=== PATIENT | female | born 1965 | race Caucasian/White ===

== ENCOUNTER → 2024-08-04 12:23 | Outpatient (REF) | payer OTHER, MEDICARE, SELFPAY | LOC: WOUND 12:23 | PROVIDERS: ATTENDING PHYSICIAN Surgery | DX: I87.311 Chronic venous hypertension (idiopathic) with ulcer of right lower extremity (principal); L97.212 Non-pressure chronic ulcer of right calf with fat layer exposed; I87.2 Venous insufficiency (chronic) (peripheral); I73.9 Peripheral vascular disease, unspecified; I89.0 Lymphedema, not elsewhere classified; E66.01 Morbid (severe) obesity due to excess calories | CPT/HCPCS: 97597; 99204 ==

== ENCOUNTER → 2024-08-11 13:46 | Outpatient (REF) | payer OTHER, MEDICARE, SELFPAY | LOC: WOUND 13:46 | PROVIDERS: ATTENDING PHYSICIAN Surgery | DX: I87.311 Chronic venous hypertension (idiopathic) with ulcer of right lower extremity (principal); L97.212 Non-pressure chronic ulcer of right calf with fat layer exposed; I87.2 Venous insufficiency (chronic) (peripheral); I73.9 Peripheral vascular disease, unspecified; I89.0 Lymphedema, not elsewhere classified; E66.01 Morbid (severe) obesity due to excess calories | CPT/HCPCS: 29581; 99213 ==

== ENCOUNTER → 2024-08-19 13:37 | Outpatient (REF) | payer OTHER, MEDICARE, SELFPAY | LOC: WOUND 13:37 | PROVIDERS: ATTENDING PHYSICIAN Surgery | DX: I87.311 Chronic venous hypertension (idiopathic) with ulcer of right lower extremity (principal); L97.212 Non-pressure chronic ulcer of right calf with fat layer exposed; I87.2 Venous insufficiency (chronic) (peripheral); I73.9 Peripheral vascular disease, unspecified; I89.0 Lymphedema, not elsewhere classified; E66.01 Morbid (severe) obesity due to excess calories | CPT/HCPCS: 29581; 99213 ==

== ENCOUNTER → 2024-08-26 13:57 | Outpatient (REF) | payer OTHER, MEDICARE, SELFPAY | LOC: WOUND 13:57 | PROVIDERS: ATTENDING PHYSICIAN Surgery | DX: I87.311 Chronic venous hypertension (idiopathic) with ulcer of right lower extremity (principal); L97.212 Non-pressure chronic ulcer of right calf with fat layer exposed; I87.2 Venous insufficiency (chronic) (peripheral); I73.9 Peripheral vascular disease, unspecified; I89.0 Lymphedema, not elsewhere classified; E66.01 Morbid (severe) obesity due to excess calories | CPT/HCPCS: 29581; 99213 ==

== ENCOUNTER → 2024-09-02 08:50 | Outpatient (REF) | payer OTHER, MEDICARE, SELFPAY | LOC: WOUND 08:50 | PROVIDERS: ATTENDING PHYSICIAN Surgery | DX: I87.311 Chronic venous hypertension (idiopathic) with ulcer of right lower extremity (principal); L97.212 Non-pressure chronic ulcer of right calf with fat layer exposed; L03.115 Cellulitis of right lower limb; I87.2 Venous insufficiency (chronic) (peripheral); I73.9 Peripheral vascular disease, unspecified; I89.0 Lymphedema, not elsewhere classified; E66.01 Morbid (severe) obesity due to excess calories | CPT/HCPCS: 29581; 99213 ==

== ENCOUNTER 2024-09-06 16:28 | Emergency (ER) | payer OTHER, MEDICARE, SELFPAY ==
[2024-09-06 16:31] VITALS: BP 181/114
--- NOTE | 2024-09-06 18:11 | ED.GENMED ---
History of Present Illness
General
Chief Complaint: Urinary Symptoms
Source: patient
Exam Limitations: none
Time Seen by Provider: 09/06/24 17:34
Nursing documentation reviewed up to this point in time: agreed with
History of Present Illness
History of Present Illness:
Patient to ED with complaint of vaginal spotting, blood in urine, blood in stool. States she noted light spotting over the past few weeks. Yesterday she noted blood in her urine and then today reports blood in stool. No prior history of same.
Denies any abdominal pain, n/v/d. Brought self to ED for eval. Also reports a wouond to right breast. Noticed this yesterday.
Past History
Past History
ED Past Medical History: Other (morbid obesity, anemia, Covid+ 06/03/18)
Social History
Tobacco: Non-smoker
Personal:
Living: with family
Employment: Employed
Review of Systems
Review of Systems
Allergies reviewed?: Yes
All Other Systems: ROS reviewed and negative except as documented in HPI and ROS
Constitutional: Reports no symptoms
EENT: Reports no symptoms
Respiratory: Reports no symptoms
Cardiac: Reports no symptoms
ABD/GI: Reports bloody stools
: Reports bleeding (reports vaginal bleeding, blood in urine, blood in stool)
Musculoskeletal: Reports no symptoms
Skin: Reports other (chronic wounds BLE - follow at wound center. Currently taking doxycycline. Now notes now wouond to right breast)
Neurological: Reports no symptoms
Psychiatric: Reports no symptoms
Phy Exam
General Physical Exam
General Presentation: well appearing and no apparent distress
General age: appears stated age
General Skin: warm and dry
General Habitus: normal
General Mental: alert
Cardiovascular Exam
Cardiovascular Exam: regular rate/rhythm and no edema
Pulmonary Exam
Pulmonary Exam: lungs clear and no respiratory distress
Gastrointestinal Exam
Gastrointestinal Exam: normal bowel sounds, non tender, soft, no organomegaly, non distended and no cva tenderness
Rectal Exam: normal external exam and soft stool
Stool: brown
Guaiac Status: negative
Genitourinary Exam Female
Exam Female: vaginal bleeding (light bleeding, no clots)
Vaginal Exam: other (Morbidly obese. Difficult speculum exam due to her size. Poor visibility of cervix)
Vaginal Bleeding: minimal
Musculoskeletal Exam
Musculoskeletal Exam: full ROM and neuro vasc intact
Skin Exam
Skin Exam: normal color, warm/dry and other (Chronic wounds BLE - under care of wound center. CUrrently taking doxycyline. Now with 1cm superficial ulceration to right breast at 7oclock. No erythema or swelling. WOund cuture obtained)
Psychiatric Exam
Psychiatric Exam: normal mood/affect
Course
Orders/Labs/Results
Orders:
Orders
09/06/24 18:11
Complete Blood Count/With Diff Urgent
Comprehensive Metabolic Panel Urgent
Pelvis (Non Obstetric) US [US Pelvis Only (non-obstetric)] Urgent
Comment:
Reason For Exam: bleeding
09/06/24 18:38
Wound Culture [Wound/Abscess/Other Culture] Urgent
BRANDON Source: Breast
Specimen Description: Right
Date Specimen was Collected: 09/06/24
Time Specimen was Collected: 18:15
09/06/24 20:16
Urinalysis Reflex To Culture Urgent
Date Specimen was Collected: 09/06/24
Time Specimen was Collected: 20:15
Urine Microscopic Reflex Cult Urgent
Urine Culture Urgent
BRANDON Source: U
Specimen Description:
Date Specimen was Collected: 09/06/24
Time Specimen was Collected: 20:15
Abnormal Lab Results
09/06/24 09/06/24
18:11 20:16
WBC 16.5 H 10^3/uL
(4.8-10.8)
Hgb 10.1 L g/dL
(12.0-16.0)
Hct 33.6 L %
(37.0-47.0)
MCV 77.2 L fL
(81.0-99.0)
MCH 23.2 L pg
(27.0-31.0)
MCHC 30.1 L g/dL
(33.0-37.0)
RDW 16.4 H %
(11.5-14.5)
Plt Count 430 H 10^3/uL
(130-400)
Abs Immat Gran (auto) 0.2 H 10^3/uL
(0-0.05)
Absolute Neuts (auto) 13.4 H 10^3/uL
(1.4-6.5)
Absolute Monos (auto) 0.9 H 10^3/uL
(0.1-0.6)
Immature Gran % 1.0 H %
(0-0.5)
Neutrophils % 81.1 H %
(42.2-75.2)
Lymphocytes % 10.6 L %
(20.5-51.1)
BUN 21 H mg/dl
(7-17)
Glucose 136 H mg/dl
(70-99)
Ur Occult Blood Reflex 4+ A
(Negative)
Leukocyte Esterase Rfl 1+ A
(Negative)
Urine RBC 26-30 A /HPF
(0-2)
Urine Bacteria (Reflex) Moderate A
(Negative)
09/06/24 18:11
09/06/24 18:11
Vital Signs
Initial and Last Documented VS:
Initial Vital Signs
Temp Pulse Resp BP Pulse Ox
98.9 F 120 20 181/114 96
09/06/24 16:31 09/06/24 16:31 09/06/24 16:31 09/06/24 16:31 09/06/24 16:31
Last Documented Vital Signs
Temp Pulse Resp BP Pulse Ox
98.9 F 80 20 181/114 96
09/06/24 16:31 09/06/24 21:23 09/06/24 16:31 09/06/24 16:31 09/06/24 23:22
*Radiology
Radiology exam reviewed: radiology read reviewed
*Pulse Oximetry
SaO2: 96
Oxygen Mode of Delivery: Room air
Patient hypoxic: no
*Critical Care Note
Total Time (30-74mins, 75-104mins- exclusive of procedures): Not Applicable
Update Note
Update Note:
Patient to ED with complant of blood in stool and urine. Reports vaginal spotting over the past few weeks. UA neg for UTI, stool heme neg. Vaginal exam limited due to morbid obesity. Small amt of blood noted in vagina, correlates with blood
patient noted in toilet and on tissue paper. Unable to visualize cervix. US completed, notes thickened endometrium. Discussed findings with her, need for gynecology teacher follow up, need for uterine biopsy. Will discharge home. SHe was given the referral for
gynecology teacher and she will call sunday to schedule her appointment. Given instructions on s/s to return to ED and she is agreeable to plan
ED Attending Note
-
Portions of this chart may have been created with voice recognition software.� Occasional wrong word or��sound alike� substitutions may have occurred due to the inherent limitations of voice recognition software.
Discharge Plan
Departure
Patient Disposition: Home (Routine Discharge)
Date of Disposition: 09/06/24
Time of Disposition: 20:52
Patient with high blood pressure during this ER visit?: No
Condition: Good
Covid-19: Not Applicable
Discharge Problem:
Abnormal uterine bleeding
Instructions: Bleeding After Menopause
Prescriptions:
No Action
No Current Medications
0
Referrals:
Shorty Pederson MD [Family Provider, Internal Medicine]
Susy Mishra DO [Active, Gynecology] - Call in 1-3 days for appt
Interventions
Interventions:
*Risk Screen - Suicide Last Done: 09/06/24 18:00
*General Assessment Last Done: 09/06/24 18:00
*Neglect/Abuse Screening Last Done: 09/06/24 18:00
*Nursing Disposition Last Done: 09/06/24 21:23
ED-Female Genitourinary Assessment Last Done: 09/06/24 18:00
Discharge Date and Time
Discharge Date/Time: 09/06/24 21:23
Print Language: ERITREAN
[2024-09-06 18:19] LABS: Hematocrit 33.6 % (37.0-47.0); Hemoglobin 10.1 g/dL (12.0-16.0); Mean Corp Hgb Conc. 30.1 g/dL (33.0-37.0); Mean Corpuscular Volume 77.2 fL (81.0-99.0); Nucleated Red Blood Cells % 0 %; Platelet Count 430 10^3/uL (130-400); Red Cell Dist. Width 16.4 % (11.5-14.5)
[2024-09-06 18:39] LABS: ALT (SGPT) 16 U/L (0-35); AST (SGOT) 15 U/L (14-36); Albumin 3.8 g/dl (3.5-5.0); Alkaline Phosphatase 99 U/L (38-126); Blood Urea Nitrogen 21 mg/dl (7-17); Calcium 8.9 mg/dl (8.4-10.2); Carbon Dioxide 29 mmol/L (22-30); Chloride 105 mmol/L (98-107); Glucose 136 mg/dl (70-99); Potassium 4.6 mmol/L (3.5-5.1); Sodium 139 mmol/L (135-145); Total Protein 7.0 g/dl (6.3-8.2); eGFR > 60.00
[2024-09-06 20:27] LABS: Urine Character Slightly Cloudy (Clear)
[2024-09-06 20:38] LABS: Urine Red Blood Cell 26-30 /HPF (0-2)
[2024-09-06 20:39] LABS: Urine White Cell 0-2 /HPF (0-5)
== END 2024-09-06 21:23 | disposition home or self-care (01) ==
LOC: EMR 16:28
PROVIDERS: Nurse Practitioner; EMERGENCY PHYSICIAN Emergency Medicine; FAMILY PHYSICIAN Internal Medicine
DX: N93.9 Abnormal uterine and vaginal bleeding, unspecified (principal); E66.01 Morbid (severe) obesity due to excess calories; Z78.0 Asymptomatic menopausal state; Z86.16 Personal history of COVID-19
CPT/HCPCS: 99284; 76856; 80053; 81003; 81015; 85025; 87070; 87086; 87147; 87205

== ENCOUNTER → 2024-09-09 06:56 | Outpatient (REF) | payer OTHER, MEDICARE, SELFPAY | LOC: RAD 06:56 | PROVIDERS: ATTENDING PHYSICIAN Surgery; FAMILY PHYSICIAN Internal Medicine | DX: I87.311 Chronic venous hypertension (idiopathic) with ulcer of right lower extremity (principal); I73.9 Peripheral vascular disease, unspecified | CPT/HCPCS: 93922 ==

== ENCOUNTER → 2024-09-09 12:54 | Outpatient (REF) | payer OTHER, MEDICARE, SELFPAY | LOC: WOUND 12:54 | PROVIDERS: ATTENDING PHYSICIAN Surgery | DX: I87.311 Chronic venous hypertension (idiopathic) with ulcer of right lower extremity (principal); L97.212 Non-pressure chronic ulcer of right calf with fat layer exposed; L03.115 Cellulitis of right lower limb; I87.2 Venous insufficiency (chronic) (peripheral); I73.9 Peripheral vascular disease, unspecified; I89.0 Lymphedema, not elsewhere classified; E66.01 Morbid (severe) obesity due to excess calories | CPT/HCPCS: 29581; 99213 ==

== ENCOUNTER → 2024-09-15 09:23 | Outpatient (REF) | payer OTHER, MEDICARE, SELFPAY | LOC: WOUND 09:23 | PROVIDERS: ATTENDING PHYSICIAN Surgery | DX: I87.311 Chronic venous hypertension (idiopathic) with ulcer of right lower extremity (principal); L97.212 Non-pressure chronic ulcer of right calf with fat layer exposed; L03.115 Cellulitis of right lower limb; I87.2 Venous insufficiency (chronic) (peripheral); I73.9 Peripheral vascular disease, unspecified; I89.0 Lymphedema, not elsewhere classified; E66.01 Morbid (severe) obesity due to excess calories | CPT/HCPCS: 29581; 99213 ==

== ENCOUNTER → 2024-09-17 08:54 | Outpatient (REF) | payer MEDICARE, SELFPAY | LOC: CLAB 08:54 | PROVIDERS: ATTENDING PHYSICIAN Advanced Practice Midwife | DX: N95.0 Postmenopausal bleeding (principal) | CPT/HCPCS: 88305 ==

== ENCOUNTER → 2024-09-19 09:31 | Outpatient (REF) | payer OTHER, MEDICARE, SELFPAY | LOC: WOUND 09:31 | PROVIDERS: ATTENDING PHYSICIAN Surgery | DX: I87.311 Chronic venous hypertension (idiopathic) with ulcer of right lower extremity (principal); L97.212 Non-pressure chronic ulcer of right calf with fat layer exposed; L03.115 Cellulitis of right lower limb; I87.2 Venous insufficiency (chronic) (peripheral); I73.9 Peripheral vascular disease, unspecified; I89.0 Lymphedema, not elsewhere classified; E66.01 Morbid (severe) obesity due to excess calories | CPT/HCPCS: 29580 ==

== ENCOUNTER → 2024-09-22 09:07 | Outpatient (REF) | payer OTHER, MEDICARE, SELFPAY | LOC: WOUND 09:07 | PROVIDERS: ATTENDING PHYSICIAN Surgery | DX: I87.311 Chronic venous hypertension (idiopathic) with ulcer of right lower extremity (principal); L97.212 Non-pressure chronic ulcer of right calf with fat layer exposed; L03.115 Cellulitis of right lower limb; I87.2 Venous insufficiency (chronic) (peripheral); I73.9 Peripheral vascular disease, unspecified; I89.0 Lymphedema, not elsewhere classified; E66.01 Morbid (severe) obesity due to excess calories | CPT/HCPCS: 29581; 99213 ==

== ENCOUNTER → 2024-09-30 09:26 | Outpatient (REF) | payer OTHER, MEDICARE, SELFPAY | LOC: WOUND 09:26 | PROVIDERS: ATTENDING PHYSICIAN Surgery | DX: I87.311 Chronic venous hypertension (idiopathic) with ulcer of right lower extremity (principal); L97.212 Non-pressure chronic ulcer of right calf with fat layer exposed; L03.115 Cellulitis of right lower limb; I87.2 Venous insufficiency (chronic) (peripheral); I73.9 Peripheral vascular disease, unspecified; I89.0 Lymphedema, not elsewhere classified; E66.01 Morbid (severe) obesity due to excess calories | CPT/HCPCS: 87070; 87075; 87077; 87186; 87205; 99213 ==

== ENCOUNTER → 2024-10-14 09:00 | Outpatient (REF) | payer OTHER, MEDICARE, SELFPAY | LOC: WOUND 09:00 | PROVIDERS: ATTENDING PHYSICIAN Surgery | DX: I87.311 Chronic venous hypertension (idiopathic) with ulcer of right lower extremity (principal); L97.212 Non-pressure chronic ulcer of right calf with fat layer exposed; L03.115 Cellulitis of right lower limb; I87.2 Venous insufficiency (chronic) (peripheral); I73.9 Peripheral vascular disease, unspecified; I89.0 Lymphedema, not elsewhere classified; E66.01 Morbid (severe) obesity due to excess calories | CPT/HCPCS: 99213 ==

== ENCOUNTER → 2024-10-14 09:54 | Outpatient (REF) | payer OTHER, MEDICARE, SELFPAY | LOC: WDC 09:54 | PROVIDERS: ATTENDING PHYSICIAN Nurse Practitioner | DX: L98.499 Non-pressure chronic ulcer of skin of other sites with unspecified severity (principal); N64.59 Other signs and symptoms in breast | CPT/HCPCS: 76642; 77062; 77066 ==

== ENCOUNTER → 2024-10-23 08:33 | Outpatient (REF) | payer OTHER, MEDICARE, SELFPAY | LOC: WOUND 08:33 | PROVIDERS: ATTENDING PHYSICIAN Surgery; FAMILY PHYSICIAN Internal Medicine Medical Oncology | DX: I87.311 Chronic venous hypertension (idiopathic) with ulcer of right lower extremity (principal); L97.212 Non-pressure chronic ulcer of right calf with fat layer exposed; L03.115 Cellulitis of right lower limb; I87.2 Venous insufficiency (chronic) (peripheral); I73.9 Peripheral vascular disease, unspecified; I89.0 Lymphedema, not elsewhere classified; E66.01 Morbid (severe) obesity due to excess calories | CPT/HCPCS: 29581; 99213 ==

== ENCOUNTER → 2024-10-23 09:25 | Outpatient (REF) | payer OTHER, MEDICARE, SELFPAY ==
[2024-10-23 10:47] LABS: Hematocrit 36.4 % (37.0-47.0); Hemoglobin 11.0 g/dL (12.0-16.0); Mean Corp Hgb Conc. 30.2 g/dL (33.0-37.0); Mean Corpuscular Volume 77.6 fL (81.0-99.0); Nucleated Red Blood Cells % 0 %; Platelet Count 510 10^3/uL (130-400); Red Cell Dist. Width 17.5 % (11.5-14.5)
[2024-10-23 11:09] LABS: ALT (SGPT) 20 U/L (0-35); AST (SGOT) 15 U/L (14-36); Albumin 4.0 g/dl (3.5-5.0); Alkaline Phosphatase 102 U/L (38-126); Blood Urea Nitrogen 21 mg/dl (7-17); Calcium 9.4 mg/dl (8.4-10.2); Carbon Dioxide 26 mmol/L (22-30); Chloride 104 mmol/L (98-107); Glucose 116 mg/dl (70-99); HDL Cholesterol 52 mg/dl; Iron 40 ug/dl (37-170); LDL Cholesterol, Calculated 103 mg/dl; Potassium 5.4 mmol/L (3.5-5.1); Sodium 140 mmol/L (135-145); Total Protein 7.5 g/dl (6.3-8.2); Very Low Density Lipoprotein 21 mg/dl (0-30); eGFR 52.80
[2024-10-23 11:38] LABS: Total Iron Binding Capacity 297 ug/dl (265-497)
[2024-10-23 14:01] LABS: Glycohemoglobin (HgbA1c) 7.0 % (4.0-5.6)
== END ==
LOC: REG 09:25
PROVIDERS: ATTENDING PHYSICIAN Nurse Practitioner
DX: I10 Essential (primary) hypertension (principal); E11.9 Type 2 diabetes mellitus without complications; R06.02 Shortness of breath; E66.01 Morbid (severe) obesity due to excess calories
CPT/HCPCS: 36415; 80053; 80061; 83036; 83540; 83550; 84443; 85025

== ENCOUNTER → 2024-10-30 08:16 | Outpatient (REF) | payer OTHER, MEDICARE, SELFPAY | LOC: WOUND 08:16 | PROVIDERS: ATTENDING PHYSICIAN Surgery | DX: I87.311 Chronic venous hypertension (idiopathic) with ulcer of right lower extremity (principal); L97.212 Non-pressure chronic ulcer of right calf with fat layer exposed; L03.115 Cellulitis of right lower limb; I87.2 Venous insufficiency (chronic) (peripheral); I73.9 Peripheral vascular disease, unspecified; I89.0 Lymphedema, not elsewhere classified; E66.01 Morbid (severe) obesity due to excess calories | CPT/HCPCS: 99213 ==

== ENCOUNTER → 2024-11-07 09:22 | Outpatient (REF) | payer OTHER, MEDICARE, SELFPAY | LOC: WOUND 09:22 | PROVIDERS: ATTENDING PHYSICIAN Surgery | DX: I87.311 Chronic venous hypertension (idiopathic) with ulcer of right lower extremity (principal); L97.212 Non-pressure chronic ulcer of right calf with fat layer exposed; I87.2 Venous insufficiency (chronic) (peripheral); I73.9 Peripheral vascular disease, unspecified; I89.0 Lymphedema, not elsewhere classified; E66.01 Morbid (severe) obesity due to excess calories | CPT/HCPCS: 29581; 99213 ==

== ENCOUNTER → 2024-11-13 08:22 | Outpatient (REF) | payer OTHER, MEDICARE, SELFPAY | LOC: WOUND 08:22 | PROVIDERS: ATTENDING PHYSICIAN Surgery | DX: I87.311 Chronic venous hypertension (idiopathic) with ulcer of right lower extremity (principal); L97.212 Non-pressure chronic ulcer of right calf with fat layer exposed; I87.2 Venous insufficiency (chronic) (peripheral); I73.9 Peripheral vascular disease, unspecified; I89.0 Lymphedema, not elsewhere classified; E66.01 Morbid (severe) obesity due to excess calories | CPT/HCPCS: 29581; 99213 ==

== ENCOUNTER → 2024-11-20 08:33 | Outpatient (REF) | payer OTHER, MEDICARE, SELFPAY | LOC: WOUND 08:33 | PROVIDERS: ATTENDING PHYSICIAN Surgery | DX: I87.311 Chronic venous hypertension (idiopathic) with ulcer of right lower extremity (principal); L97.212 Non-pressure chronic ulcer of right calf with fat layer exposed; I87.2 Venous insufficiency (chronic) (peripheral); I73.9 Peripheral vascular disease, unspecified; I89.0 Lymphedema, not elsewhere classified; E66.01 Morbid (severe) obesity due to excess calories | CPT/HCPCS: 29581; 99213 ==

== ENCOUNTER 2024-11-26 06:23 | Day surgery (SDC) | payer OTHER, MEDICARE, SELFPAY ==
[2024-11-05 10:34] LABS: Hematocrit 34.0 % (37.0-47.0); Hemoglobin 10.5 g/dL (12.0-16.0); Mean Corp Hgb Conc. 30.9 g/dL (33.0-37.0); Mean Corpuscular Volume 79.1 fL (81.0-99.0); Nucleated Red Blood Cells % 0 %; Platelet Count 461 10^3/uL (130-400); Red Cell Dist. Width 17.6 % (11.5-14.5)
[2024-11-05 11:02] LABS: Blood Urea Nitrogen 21 mg/dl (7-17); Calcium 8.9 mg/dl (8.4-10.2); Carbon Dioxide 24 mmol/L (22-30); Chloride 104 mmol/L (98-107); Glucose 94 mg/dl (70-99); Potassium 4.9 mmol/L (3.5-5.1); Sodium 139 mmol/L (135-145); eGFR 52.80
[2024-11-05 13:49] VITALS: BMI 72.4
--- NOTE | 2024-11-19 11:10 | PTCARENOTE ---
WBC 15.3 collected on 11/05/24; Jessica at Dr. Rivera's office was notified.
[2024-11-26] VITALS (10 sets, daily range): BP systolic 143–190; BP diastolic 73–104; BMI 72.4
[2024-11-26] MEDS: NORMOSOL-R/PLASMALYTE-A 1000 IV (12:42)
[2024-11-26 12:46] LABS: Glucose - Point of Care 122 mg/dl (70-99)
== END 2024-11-26 17:10 | disposition home or self-care (01) ==
LOC: SDS 06:23
PROVIDERS: ATTENDING PHYSICIAN Obstetrics & Gynecology; FAMILY PHYSICIAN Internal Medicine
DX: N85.8 Other specified noninflammatory disorders of uterus (principal); R87.619 Unspecified abnormal cytological findings in specimens from cervix uteri; N95.0 Postmenopausal bleeding
CPT/HCPCS: 58558; 36415; 80048; 82962; 85025; 86850; 86900; 86901; 88305; 93005; G0123

== ENCOUNTER → 2024-12-01 08:48 | Outpatient (REF) | payer OTHER, MEDICARE, SELFPAY | LOC: WOUND 08:48 | PROVIDERS: ATTENDING PHYSICIAN Surgery | DX: I87.311 Chronic venous hypertension (idiopathic) with ulcer of right lower extremity (principal); L97.212 Non-pressure chronic ulcer of right calf with fat layer exposed; I87.2 Venous insufficiency (chronic) (peripheral); I73.9 Peripheral vascular disease, unspecified; I89.0 Lymphedema, not elsewhere classified; E66.01 Morbid (severe) obesity due to excess calories | CPT/HCPCS: 29581; 99213 ==

== ENCOUNTER → 2024-12-08 08:57 | Outpatient (REF) | payer OTHER, MEDICARE, SELFPAY | LOC: WOUND 08:57 | PROVIDERS: ATTENDING PHYSICIAN Surgery; FAMILY PHYSICIAN Internal Medicine Medical Oncology | DX: I87.311 Chronic venous hypertension (idiopathic) with ulcer of right lower extremity (principal); L97.212 Non-pressure chronic ulcer of right calf with fat layer exposed; I87.2 Venous insufficiency (chronic) (peripheral); I73.9 Peripheral vascular disease, unspecified; I89.0 Lymphedema, not elsewhere classified; E66.01 Morbid (severe) obesity due to excess calories | CPT/HCPCS: 29581; 99213 ==

== ENCOUNTER → 2024-12-12 10:27 | Outpatient (REF) | payer OTHER, MEDICARE, SELFPAY | LOC: WOUND 10:27 | PROVIDERS: ATTENDING PHYSICIAN Surgery | DX: I87.311 Chronic venous hypertension (idiopathic) with ulcer of right lower extremity (principal); L97.212 Non-pressure chronic ulcer of right calf with fat layer exposed; I87.2 Venous insufficiency (chronic) (peripheral); I73.9 Peripheral vascular disease, unspecified; I89.0 Lymphedema, not elsewhere classified; E66.01 Morbid (severe) obesity due to excess calories | CPT/HCPCS: 29581; 99213 ==

== ENCOUNTER 2024-12-18 09:11 | Outpatient (REF) | payer OTHER, MEDICARE, SELFPAY | END 2024-12-18 23:59 | disposition home or self-care (01) | LOC: WOUND 09:11 | PROVIDERS: ATTENDING PHYSICIAN Surgery | DX: I87.311 Chronic venous hypertension (idiopathic) with ulcer of right lower extremity (principal); L03.115 Cellulitis of right lower limb; L97.212 Non-pressure chronic ulcer of right calf with fat layer exposed; I87.2 Venous insufficiency (chronic) (peripheral); I73.9 Peripheral vascular disease, unspecified; I89.0 Lymphedema, not elsewhere classified; E66.01 Morbid (severe) obesity due to excess calories | CPT/HCPCS: 99215 ==

== ENCOUNTER 2024-12-18 10:00 | Emergency (ER) | payer OTHER, MEDICARE, SELFPAY ==
[2024-12-18 10:02] VITALS: BP 166/87
--- NOTE | 2024-12-18 10:30 | ED.GENMED ---
History of Present Illness
General
Chief Complaint: Skin Problem
Source: patient
Exam Limitations: none
Time Seen by Provider: 12/18/24 10:19
Nursing documentation reviewed up to this point in time: agreed with
History of Present Illness
History of Present Illness:
Patient is a 59-year-old morbidly obese female with past medical history of diabetes, chronic lymphedema hypertension presents to the ER for evaluation. Patient has been followed by wound center and sent here for cellulitis. She reports this has
been leaking for weeks and when this occurs it usually becomes infected. She denies any fever or chills.
Past History
Past History
ED Past Medical History: Other (morbid obesity, anemia, Covid+ 06/03/18)
Social History
Tobacco: Non-smoker
Personal:
Living: with family
Employment: Employed
Phy Exam
General Physical Exam
General Presentation: no apparent distress
General age: appears stated age
General Skin: warm and dry
General Habitus: obese
General Mental: alert
General Hydration: appears well hydrated
Neurological Exam
Neurological Exam: alert and oriented x3
Musculoskeletal Exam
Musculoskeletal Exam: other (Patient with strong pulses right lower extremity patient has erythema to the right lower leg circumferential)
Skin Exam
Skin Exam: normal color and warm/dry
Psychiatric Exam
Psychiatric Exam: normal mood/affect
Course
Orders/Labs/Results
Orders:
Orders
12/18/24 10:43
Complete Blood Count/With Diff Urgent
Comprehensive Metabolic Panel Urgent
12/18/24 11:30
CeFAZolin 1 GRAM [Ancef] 1 gram in 5 ml IV NOW
12/18/24 11:36
CefTRIAXone [Rocephin] 1,000 mg IV NOW STA
Abnormal Lab Results
12/18/24
10:43
WBC 12.8 H 10^3/uL
(4.8-10.8)
RBC 4.16 L 10^6/uL
(4.20-5.40)
Hgb 10.0 L g/dL
(12.0-16.0)
Hct 33.3 L %
(37.0-47.0)
MCV 80.0 L fL
(81.0-99.0)
MCH 24.0 L pg
(27.0-31.0)
MCHC 30.0 L g/dL
(33.0-37.0)
RDW 17.3 H %
(11.5-14.5)
Plt Count 427 H 10^3/uL
(130-400)
Abs Immat Gran (auto) 0.2 H 10^3/uL
(0-0.05)
Absolute Neuts (auto) 10.2 H 10^3/uL
(1.4-6.5)
Absolute Monos (auto) 0.7 H 10^3/uL
(0.1-0.6)
Immature Gran % 1.3 H %
(0-0.5)
Neutrophils % 79.9 H %
(42.2-75.2)
Lymphocytes % 10.5 L %
(20.5-51.1)
BUN 20 H mg/dl
(7-17)
Glucose 120 H mg/dl
(70-99)
12/18/24 10:43
12/18/24 10:43
Vital Signs
Initial and Last Documented VS:
Initial Vital Signs
Temp Pulse Resp BP Pulse Ox
98.0 F 85 18 166/87 97
12/18/24 10:02 12/18/24 10:02 12/18/24 10:02 12/18/24 10:02 12/18/24 10:02
Last Documented Vital Signs
Temp Pulse Resp BP Pulse Ox
98.6 F 85 20 141/85 99
12/18/24 10:44 12/18/24 10:44 12/18/24 10:44 12/18/24 10:44 12/18/24 10:44
Onboarding Specialist consulted with Physician
Onboarding Specialist consulted with physician?: Yes
Name of Physician Consulted: Janeth
MDM/Problems Addressed
Differential Diagnosis Includes:
Not limited cellulitis chronic lymphedema
MDM/Problems Addressed:
As documented patient is a 59-year-old female with history of chronic lymphedema sent by wound care for admission for cellulitis. Patient had redness to the right lower leg which has been weeping for weeks. She acknowledges that this is similar to
when she has had cellulitis in the past. She denies fevers. She adamantly refuses admission. I did discuss the importance of admitting her to the hospital for IV antibiotics. White count very minimally elevated. She is well-appearing and
afebrile. She reports she is a newly diagnosed diabetic however her sugars 120 with normal renal function. Previous cultures/sensitivities reviewed reviewed. Reviewed with ED physician will give 1 dose of Rocephin now and discharged with Cipro
return precautions given. I did discuss with ED physician.
Chronic conditions affecting care:
diabetes /chronic lymphedema
*Pulse Oximetry
SaO2: 97
Oxygen Mode of Delivery: Room air
Patient hypoxic: no
*Critical Care Note
Total Time (30-74mins, 75-104mins- exclusive of procedures): Not Applicable
ED Attending Note
-
Portions of this chart may have been created with voice recognition software.� Occasional wrong word or��sound alike� substitutions may have occurred due to the inherent limitations of voice recognition software.
Discharge Plan
Departure
Patient Disposition: Home (Routine Discharge)
Date of Disposition: 12/18/24
Time of Disposition: 11:37
Patient with high blood pressure during this ER visit?: Yes
Condition: Fair
Covid-19: Not Applicable
Discharge Problem:
Cellulitis
Instructions: Cellulitis (Skin Infection), Adult (DC), [facility], BLOOD PRESSURE
Prescriptions:
New
ciprofloxacin HCl [Cipro] 500 mg tablet
500 mg PO BID Qty: 20 0RF
No Action
amlodipine 5 mg tablet
5 mg PO DAILY
Mounjaro 7.5 mg/0.5 mL Pen Injector
7.5 mg SC FR
ferrous sulfate 325 mg (65 mg iron) Tablet
325 mg PO MOWEFR
lisinopril 40 mg Tablet
40 mg PO DAILY
diclofenac sodium [Voltaren] 75 mg Tablet,Delayed Release (Dr/Ec)
75 mg PO BID
Referrals:
Shorty Pederson MD [Family Provider, Internal Medicine]
Activity Restrictions/Additional Instructions:
As discussed it was recommended that you stay in the hospital for IV antibiotics however you declined.
you were given 1 dose of IV antibiotics here in the ER and a prescription was sent to your pharmacy take as directed. Please in the next 2 days for reevaluation with wound center as well as your family doctor for reevaluation. Return however if
any worsening of symptoms of increasing pain swelling redness drainage fever chills.
Interventions
Interventions:
*Risk Screen - Suicide Last Done: 12/18/24 10:02
*General Assessment Last Done: 12/18/24 10:02
*Neglect/Abuse Screening Last Done: 12/18/24 10:44
*ED- Fall Risk Assessment Last Done: 12/18/24 10:44
*ED COVID-19 Vaccine History Last Done: 12/18/24 10:44
*ED Influenza Vaccine History Last Done: 12/18/24 10:44
*Nursing Disposition Last Done: 12/18/24 11:53
ED-Skin Assessment Last Done: 12/18/24 10:44
Discharge Date and Time
Discharge Date/Time: 12/18/24 11:55
Print Language: SPANISH
[2024-12-18 10:44] VITALS: BP 141/85; BMI 72.9
[2024-12-18 10:49] LABS: Hematocrit 33.3 % (37.0-47.0); Hemoglobin 10.0 g/dL (12.0-16.0); Mean Corp Hgb Conc. 30.0 g/dL (33.0-37.0); Mean Corpuscular Volume 80.0 fL (81.0-99.0); Nucleated Red Blood Cells % 0 %; Platelet Count 427 10^3/uL (130-400); Red Cell Dist. Width 17.3 % (11.5-14.5)
[2024-12-18 11:14] LABS: ALT (SGPT) 19 U/L (0-35); AST (SGOT) 16 U/L (14-36); Albumin 3.7 g/dl (3.5-5.0); Alkaline Phosphatase 98 U/L (38-126); Blood Urea Nitrogen 20 mg/dl (7-17); Calcium 8.4 mg/dl (8.4-10.2); Carbon Dioxide 27 mmol/L (22-30); Chloride 105 mmol/L (98-107); Estimated Creatinine Clearance 104 ml/min; Glucose 120 mg/dl (70-99); Potassium 4.4 mmol/L (3.5-5.1); Sodium 136 mmol/L (135-145); Total Protein 7.1 g/dl (6.3-8.2); eGFR > 60.00
[2024-12-18] MEDS: ROCEPHIN 1000 MG IV (11:46)
== END 2024-12-18 11:55 | disposition home or self-care (01) ==
LOC: EMR 10:00
PROVIDERS: Nurse Practitioner; EMERGENCY PHYSICIAN Emergency Medicine; FAMILY PHYSICIAN Internal Medicine
DX: L03.115 Cellulitis of right lower limb (principal); I10 Essential (primary) hypertension; E11.9 Type 2 diabetes mellitus without complications; I89.0 Lymphedema, not elsewhere classified; E66.01 Morbid (severe) obesity due to excess calories; Z68.45 Body mass index [BMI] 70 or greater, adult; Z79.85 Long-term (current) use of injectable non-insulin antidiabetic drugs; Z86.16 Personal history of COVID-19
CPT/HCPCS: 99284; 96374; 80053; 85025

== ENCOUNTER 2024-12-22 10:12 | Outpatient (REF) | payer OTHER, MEDICARE, SELFPAY | END 2024-12-22 23:59 | disposition home or self-care (01) | LOC: WOUND 10:12 | PROVIDERS: ATTENDING PHYSICIAN Surgery | DX: I87.311 Chronic venous hypertension (idiopathic) with ulcer of right lower extremity (principal); L03.115 Cellulitis of right lower limb; L97.212 Non-pressure chronic ulcer of right calf with fat layer exposed; I87.2 Venous insufficiency (chronic) (peripheral); I73.9 Peripheral vascular disease, unspecified; I89.0 Lymphedema, not elsewhere classified; E66.01 Morbid (severe) obesity due to excess calories | CPT/HCPCS: 99213 ==